=== PATIENT | female | born 1965 | race African-American/Black ===

== ENCOUNTER → 2017-01-21 | Day surgery (SDC) | payer OTHER ==
[~2017-01-21] MED LIST: TENORMIN50 MG PO; TRIAMTERENE-HC1 EAC1 PO
--- NOTE | ~2017-01-21 | OR ---
Unit #: [id number] #: [id number] Patient: CHANTE FOOTE [id number] [address] [place], [place] [address] [id number] O MR#: [id number] NAME: CHANTE FOOTE ROOM: Date of Procedure: 01/21/2017 Admission Date: 01/21/2017 Surgeon: Severo Reese M.D. : 1965 Attending Physician: Severo Reese M.D. Primary Care Physician: Akhil Fitch M.D. OPERATIVE REPORT PROCEDURE PERFORMED Colonoscopy to cecum. INDICATIONS FOR PROCEDURE The patient with positive FIT test. MEDICATION Monitored anesthesia. POSTOPERATIVE FINDINGS Colonoscopy completed to cecum. No polyps, masses, or colitis. Prep was good. PLAN Repeat colonoscopy in 5 to 10 years. DESCRIPTION OF PROCEDURE The patient was explained of the procedure, risks, and benefits along with risks and benefits of anesthesia. She was brought to the endoscopy room. Propofol anesthesia was given. Rectal exam was done, which was normal. Colonoscope was lubricated, passed up the rectum, advanced under direct vision all the way to the cecum. Cecum was identified by ileocecal valve and appendiceal orifice. I then started to pull the scope out carefully looking. No polyps, masses, or colitis were seen. Mucosa was normal and healthy. I retroflexed the rectum, small hemorrhoids seen. Scope was gently pulled out. She tolerated it well. No major complications seen. Dictated by... Sanjuana Weems/lynn TD: 01/22/2017 01:16 JOB #: [id number] Unit #: [id number] #: [id number] Patient: CHANTE FOOTE OPERATIVE REPORT Page 1 of 1 X Severo Reese MD X PROCEDURE OPERATIVE NOTE
== END | disposition home or self-care (01) ==
LOC: COPS 11:39
DX: R19.5 Other fecal abnormalities (principal); K64.9 Unspecified hemorrhoids; I10 Essential (primary) hypertension